=== PATIENT | male | born 1985 | race Caucasian/White ===

== ENCOUNTER 2016-06-08 20:37 | Emergency (ER) | payer BC ==
[2016-06-08 20:51] VITALS: O2SAT 100
--- NOTE | 2016-06-08 21:14 | ERPHSYRPT ---
- History of Present Illness Time Seen by Provider: 06/08/16 21:09 Source: patient Exam Limitations: no limitations Patient Subjective Stated Complaint: pt states he has a bad tooth and has been having pain since yesterday and increased today Triage Nursing Assessment: pt alert and oriented. answers questions approp. pt ambulatory with steady gait noted. skin pink warm and dry. respirations nonlabored with lungs cta. broken, brown discolored tooth noted to lt lower jaw. Physician History: The patient is a 30-year-old male who complains of increasing tooth pain in the left lower posterior molar since yesterday. He has known dental caries in that tooth and has had the same problem in the past. He is out of antibiotics. He knows he needs to have a dentist take care of it. He comes in requesting some pain relief and antibiotics. Timing/Duration: gradual onset Severity: severe ENT Location: dental Prearrival Treatment: no prearrival treatment Modifying Factors: Improves With: nothing Associated Symptoms: tooth pain Allergies/Adverse Reactions: No Known Drug Allergies Allergy (Verified 06/08/16 20:52) Home Medications: Cyclobenzaprine HCl [Flexeril] 5 mg PO Q8H PRN PRN 06/08/16 [History] Ibuprofen 800 mg PO Q8H PRN PRN 06/08/16 [History] Hx Tetanus, Diphtheria Vaccination/Date Given: Yes Hx Influenza Vaccination/Date Given: No Hx Pneumococcal Vaccination/Date Given: No Immunizations Up to Date: Yes - Review of Systems Constitutional: No Fever, No Chills Eyes: No Symptoms Ears, Nose, & Throat: Other (dental pain) Respiratory: No Cough, No Dyspnea Cardiac: No Chest Pain, No Edema, No Syncope Abdominal/Gastrointestinal: No Abdominal Pain, No Nausea, No Vomiting, No Diarrhea Genitourinary Symptoms: No Dysuria Musculoskeletal: No Back Pain, No Neck Pain Skin: No Rash Neurological: No Dizziness, No Focal Weakness, No Sensory Changes Psychological: No Symptoms Endocrine: No Symptoms Hematologic/Lymphatic: No Symptoms Immunological/Allergic: No Symptoms All Other Systems: Reviewed and Negative - Past Medical History Pertinent Past Medical History: No Neurological History: No Pertinent History ENT History: No Pertinent History Cardiac History: No Pertinent History Respiratory History: No Pertinent History Endocrine Medical History: No Pertinent History Musculoskeletal History: Other GI Medical History: No Pertinent History History: No Pertinent History Psycho-Social History: No Pertinent History Male Reproductive Disorders: No Pertinent History Other Medical History: chronic shoulder pain - Past Surgical History Past Surgical History: No Neuro Surgical History: No Pertinent History Cardiac: No Pertinent History Respiratory: No Pertinent History Gastrointestinal: Cholecystectomy Genitourinary: No Pertinent History Musculoskeletal: No Pertinent History Male Surgical History: No Pertinent History - Social History Smoking Status: Former smoker How long have you smoked: 8 YRS. Exposure to second hand smoke: No Alcohol Use: Socially Drug Use: none Patient Lives Alone: No Significant Family History: no pertinent family hx - Nursing Vital Signs Nursing Vital Signs: Initial Vital Signs Temperature 97.6 F Temperature Source Oral Pulse Rate 74 Respiratory Rate 18 Blood Pressure [Right Arm] 163/88 Pain Intensity 9 - Physical Exam General Appearance: moderate distress Eye Exam: bilateral eye: PERRL, EOMI Nasal Exam: normal inspection Throat Exam: mandibular swelling Neck Exam: supple Cardiovascular/Respiratory Exam: normal breath sounds, regular rate/rhythm Abdominal Exam: non-tender, soft Neurologic Exam: alert, oriented x 3, sensation nml, No motor deficits Skin Exam: normal color, warm, dry SpO2: 100 Oxygen Delivery: Room Air - Progress Progress: improved Counseled pt/family regarding: diagnosis - Departure Time of Disposition: 21:16 Departure Disposition: Home Clinical Impression: Dental abscess Condition: Stable Critical Care Time: No Additional Instructions: You have an abscess in your left lower rear molar. You were given a Toradol injection 60 mg in the emergency room. We were also given penicillin 500 mg. You have a prescription for penicillin to take one tablet 4 times a day for 10 days. You should follow-up with a dentist as soon as possible to get this tooth extracted. Prescriptions: Penicillin V Potassium 500 mg PO QID #40 tablet
[2016-06-08] MEDS ORDERED: TORAdol 30 mg Injection IM ONE (21:19)
[2016-06-08] MEDS ORDERED: PEN-VEE K PO ONE (21:19)
[2016-06-08] MEDS ORDERED: PEN-VEE K ONE (21:27)
[2016-06-08] MEDS ORDERED: TORAdol 30 mg Injection ONE (21:27)
[2016-06-08 21:40] VITALS: BP 123/70; PULSE 73
== END 2016-06-08 21:40 | disposition home or self-care (01) ==
LOC: ED 20:37
DX: K04.7 Periapical abscess without sinus (principal)
CPT/HCPCS: 96372; 99284; J1885; A9270-GY

== ENCOUNTER 2017-09-14 18:26 | Emergency (ER) | payer SELFPAY ==
[2017-09-14 18:42] VITALS: BP 138/89; PULSE 85; O2SAT 9
--- NOTE | 2017-09-14 18:57 | ERPHSYRPT ---
- History of Present Illness Time Seen by Provider: 09/14/17 18:49 Source: patient Exam Limitations: no limitations Patient Subjective Stated Complaint: pt here for toothache to left side of mouth since last night. states he as 3 bad teeth on that side Triage Nursing Assessment: pt has slight swellign to left side of jaw Physician History: 32-year-old white male arrives with complaint of pain in the left side of his mouth he states he feels like the left side of his mouth is swollenl He states he has bad teeth, Past medical history includes chronic shoulder pain, Past surgical history includes cholecystectomy, Timing/Duration: day(s) (2 days) Severity: moderate Modifying Factors: Improves With: nothing Associated Symptoms: No nausea, No vomiting, No abdominal pain, No shortness of breath, No heartburn, No diaphoresis, No cough, No chills, No chest pain, No fever, No headaches, No loss of appetite, No malaise, No rash, No syncope, No seizure, No weakness Allergies/Adverse Reactions: No Known Drug Allergies Allergy (Verified 09/14/17 18:38) Home Medications: Hydrocodone Bit/Acetaminophen [[place] 5-325 Tablet] 1 ea BID 09/14/17 [History] Meloxicam 1 ea DAILY 09/14/17 [History] Hx Tetanus, Diphtheria Vaccination/Date Given: No Hx Influenza Vaccination/Date Given: No Hx Pneumococcal Vaccination/Date Given: No Immunizations Up to Date: Yes - Review of Systems Constitutional: No Fever, No Chills Eyes: No Symptoms, No Foreign Body Sensation Ears, Nose, & Throat: Epistaxis, Mouth Pain, Mouth Swelling, No Ear Discharge, No Hearing Changes, No Tinnitus, No Nose Pain, No Nose Congestion, No Nose Discharge, No Sinus Drainage, No Loose Teeth, No Throat Pain, No Throat Swelling , No Hoarse, No Painful Swallowing, No Snoring, No Stridor Respiratory: No Cough, No Dyspnea Cardiac: No Chest Pain, No Edema, No Syncope Abdominal/Gastrointestinal: No Abdominal Pain, No Nausea, No Vomiting, No Diarrhea Genitourinary Symptoms: No Dysuria Musculoskeletal: No Back Pain, No Neck Pain Skin: No Rash Neurological: No Dizziness, No Focal Weakness, No Sensory Changes Psychological: No Symptoms Endocrine: No Symptoms All Other Systems: Reviewed and Negative - Past Medical History Pertinent Past Medical History: No Neurological History: No Pertinent History ENT History: No Pertinent History Cardiac History: No Pertinent History Respiratory History: No Pertinent History Endocrine Medical History: No Pertinent History Musculoskeletal History: Other GI Medical History: No Pertinent History History: No Pertinent History Psycho-Social History: No Pertinent History Male Reproductive Disorders: No Pertinent History Other Medical History: chronic shoulder pain - Past Surgical History Past Surgical History: No Neuro Surgical History: No Pertinent History Cardiac: No Pertinent History Respiratory: No Pertinent History Gastrointestinal: Cholecystectomy Genitourinary: No Pertinent History Musculoskeletal: No Pertinent History Male Surgical History: No Pertinent History - Social History Smoking Status: Current some day smoker How long have you smoked: 8 YRS. Exposure to second hand smoke: Yes Alcohol Use: Socially Drug Use: none Patient Lives Alone: No Significant Family History: no pertinent family hx - Nursing Vital Signs Nursing Vital Signs: Initial Vital Signs Temperature 98.6 F 09/14/17 18:35 Pulse Rate 85 09/14/17 18:35 Respiratory Rate 16 09/14/17 18:35 Blood Pressure 138/89 09/14/17 18:35 O2 Sat by Pulse Oximetry 9 L 09/14/17 18:35 Pain Scale Pain Intensity 6 - Physical Exam General Appearance: mild distress Eye Exam: PERRL/EOMI, eyes nml inspection Ears, Nose, Throat Exam: TMs normal, pharynx normal, moist mucous membranes, other (patient with poor dentition caries in the left molar area, mild tenderness with palpation lateral mandibular and maxillary area) Neck Exam: normal inspection, non-tender, supple, full range of motion Respiratory Exam: normal breath sounds, lungs clear, No respiratory distress Cardiovascular Exam: regular rate/rhythm, normal heart sounds, normal peripheral pulses Gastrointestinal/Abdomen Exam: soft, normal bowel sounds, No tenderness, No mass Back Exam: normal inspection, normal range of motion, No CVA tenderness, No vertebral tenderness Extremity Exam: normal inspection, normal range of motion, pelvis stable Neurologic Exam: alert, oriented x 3, cooperative, recovery room rn II-XII nml as tested, normal mood/affect, nml cerebellar function, nml station & gait, sensation nml, No motor deficits Skin Exam: normal color, warm, dry, No rash Lymphatic Exam: No adenopathy SpO2 Interpretation: normal (97%) SpO2: 9 Oxygen Delivery: Room Air - Course Nursing assessment & vital signs reviewed: Yes - Progress Progress: improved Progress Note: 09/14/17 18:54 This is a 32-year-old white male with history of chronic shoulder pain who states he takes Mobic and hydrocodone at home. He states he has been having pain and swelling in the left side of his mouth he has a history of chronic dental caries has been seen in the past secondary to a carious tooth in the left molar region. Patient does not appear to be in acute distress. Patient does have a pain control supervisor he has a prescription for hydrocodone/acetaminophen 7.5-325 #90 which was written on August 17, 2017 He states he is to see his pain control supervisor tomorrow. Will go ahead and write for amoxicillin 500 mg orally 3 times a day for 10 days. - Departure Time of Disposition: 18:57 Departure Disposition: Home Clinical Impression: Pain, dental, Dental caries Condition: Fair Critical Care Time: No Additional Instructions: Return home. Cold packs to area 24-48 hours (external) Amoxicillin 500 mg orally 3 times a day for 10 days. Pain medication as prescribed by your pain control supervisor. Avoid excessively hot or cold foods. Follow-up with your family doctor or dentist. Return for acute distress or for severe symptoms. Prescriptions: Amoxicillin 500 mg PO TID #30 capsule
== END 2017-09-14 19:10 | disposition home or self-care (01) ==
LOC: ED 18:26
DX: K02.9 Dental caries, unspecified (principal); Z72.0 Tobacco use
CPT/HCPCS: 99283

== ENCOUNTER 2018-01-17 19:50 | Emergency (ER) | payer BC ==
[2018-01-17] MEDS ORDERED: XYLOCAINE 1% HCL 20 ML MDV IJ ONE (20:05)
[2018-01-17] MEDS ORDERED: BACIGUENT PACKET TP ONE (20:05)
[2018-01-17] MEDS ORDERED: XYLOCAINE 1% HCL 20 ML MDV ONE (20:07)
[2018-01-17 20:11] VITALS: O2SAT 99
--- NOTE | 2018-01-17 20:11 | ERPHSYRPT ---
- History of Present Illness Time Seen by Provider: 01/17/18 20:07 Source: patient Exam Limitations: no limitations Patient Subjective Stated Complaint: pt states while working on his car, he hit his arm on a piece of metal and cut it. Triage Nursing Assessment: pt alert and oriented, answers questions approp. pt ambulatory with steady gait noted, respirations nonlabored with lungs cta. laceration to rt outer elbow approx 3cm, no bleeding noted at this time. Physician History: 32-year-old white male arrives with complaint of laceration to his right posterior elbow symptoms since an hour prior to arrival. According to patient he was working on an old car when he lacerated his elbow on portion of the car. Patient has full range of motion to all extremities he has a laceration to his right dorsal elbow. Patient denies any other complaints. Patient's last tetanus was 4-1/2 years ago, Past medical history includes chronic shoulder pain, Past surgical history includes cholecystectomy. Social history includes tobacco use. Occurred: just prior to arrival Method of Injury: other (lacerated on an old car) Quality: constant Severity of Pain-Max: mild Severity of Pain-Current: mild Extremities Pain Location: elbow: right Modifying Factors: Improves With: nothing Associated Symptoms: none Allergies/Adverse Reactions: No Known Drug Allergies Allergy (Verified 01/17/18 20:03) Home Medications: Hydrocodone Bit/Acetaminophen [[place] 5-325 Tablet] 1 ea BID 09/14/17 [History] Meloxicam 1 ea DAILY 09/14/17 [History] Hx Tetanus, Diphtheria Vaccination/Date Given: Yes (2013) Hx Influenza Vaccination/Date Given: No Hx Pneumococcal Vaccination/Date Given: No Immunizations Up to Date: Yes - Review of Systems Constitutional: No Fever, No Chills Eyes: No Symptoms Ears, Nose, & Throat: No Symptoms Respiratory: No Cough, No Dyspnea Cardiac: No Chest Pain, No Edema, No Syncope Abdominal/Gastrointestinal: No Abdominal Pain, No Nausea, No Vomiting, No Diarrhea Genitourinary Symptoms: No Dysuria Musculoskeletal: No Back Pain, No Neck Pain Skin: Other (1.5 cm laceration right posterior elbow) Neurological: No Dizziness, No Focal Weakness, No Sensory Changes Psychological: No Symptoms Endocrine: No Symptoms All Other Systems: Reviewed and Negative - Past Medical History Pertinent Past Medical History: No Neurological History: No Pertinent History ENT History: No Pertinent History Cardiac History: No Pertinent History Respiratory History: No Pertinent History Endocrine Medical History: No Pertinent History Musculoskeletal History: Other GI Medical History: No Pertinent History History: No Pertinent History Psycho-Social History: No Pertinent History Male Reproductive Disorders: No Pertinent History Other Medical History: chronic shoulder pain, pinched nerves - Past Surgical History Past Surgical History: No Neuro Surgical History: No Pertinent History Cardiac: No Pertinent History Respiratory: No Pertinent History Gastrointestinal: Cholecystectomy Genitourinary: No Pertinent History Musculoskeletal: No Pertinent History Male Surgical History: No Pertinent History - Social History Smoking Status: Current some day smoker How long have you smoked: 10 yrs Exposure to second hand smoke: Yes Alcohol Use: Socially Drug Use: none Patient Lives Alone: No Significant Family History: no pertinent family hx - Nursing Vital Signs Nursing Vital Signs: Initial Vital Signs Temperature 98.1 F 01/17/18 19:53 Pulse Rate 100 H 01/17/18 19:53 Respiratory Rate 16 01/17/18 19:53 Blood Pressure 126/94 01/17/18 19:53 O2 Sat by Pulse Oximetry 99 01/17/18 19:53 Pain Scale Pain Intensity 5 - Physical Exam General Appearance: mild distress Eyes, Ears, Nose, Throat Exam: moist mucous membranes Neck Exam: non-tender, supple Cardiovascular/Respiratory Exam: chest non-tender, normal breath sounds, regular rate/rhythm, no respiratory distress Abdominal Exam: non-tender, No guarding Back Exam: normal inspection, No vertebral tenderness Shoulder Exam: normal inspection, non-tender, no evidence of injury, normal ROM Elbow/Forearm Exam: normal ROM, No normal inspection (1.5 cm laceration right dorsal nelbow), No non-tender, No no evidence of injury Wrist Exam: normal inspection, non-tender, no evidence of injury, normal ROM Hand Exam: normal inspection, non-tender, no evidence of injury, normal ROM Neuro/Tendon Exam: normal sensation, normal motor functions Mental Status Exam: alert, oriented x 3, cooperative Skin Exam: other (1.5 cmlaceration right dorsal right dorsal elbowelbow) SpO2 Interpretation: normal (99%Was assessed in on him) - Course Nursing assessment & vital signs reviewed: Yes Ordered Tests: Active Orders 24 hr Category Date Time Status Prepare for Sutures STAT Care 01/17/18 20:05 Active Sutures STAT Care 01/17/18 20:06 Active Wound Care STAT Care 01/17/18 20:05 Active Medication Summary Discontinued Medications Generic Name Dose Route Start Last Admin Trade Name Osmar PRN Reason Stop Dose Admin Bacitracin Zinc 0.9 gm 01/17/18 20:05 Baciguent Packet TP 01/17/18 20:06 STAT ONE Lidocaine HCl 5 ml 01/17/18 20:05 Xylocaine 1% Hcl 20 Ml Mdv IJ 01/17/18 20:06 STAT ONE Lidocaine HCl Confirm 01/17/18 20:07 Xylocaine 1% Hcl 20 Ml Mdv Administered 01/17/18 20:08 Dose 10 ml .ROUTE .STOUYA-MED ONE - Progress Progress: improved Progress Note: 01/17/18 20:32 1.5 cm laceration right posterior elbow. Laceration inspected after cleansing no foreign bodies noted. Laceration sterilely prepped and draped irrigated with saline cleansed with Hibiclens. Laceration closed with 3 5-0 Prolene suture lacerations. Bacitracin applied and dressing applied by nurse. Patient's right upper extremity neurovascular intact after repair. - Departure Time of Disposition: 20:34 Departure Disposition: Home Clinical Impression: Laceration of right elbow Qualifiers: Encounter type: initial encounter Qualified Code(s): S51.011A - Laceration without foreign body of right elbow, initial encounter Condition: Fair Critical Care Time: No Referrals: DOCTOR,NO FAMILY [Primary Care Provider] - Instructions: Laceration Repair With Stitches (DC) Additional Instructions: Keep area clean and dry. Bacitracin to area until healed. Sutures out in 5-7 days. Follow-up with your family doctor or return if signs of infection or problems. Return for acute distress or for severe symptoms.
[2018-01-17] MEDS ORDERED: BACIGUENT PACKET ONE (20:32)
[2018-01-17 20:40] VITALS: BP 132/97; PULSE 76
== END 2018-01-17 20:45 | disposition home or self-care (01) ==
LOC: ED 19:50
DX: S51.011A Laceration without foreign body of right elbow, initial encounter (principal); W26.8XXA Contact with other sharp object(s), not elsewhere classified, initial encounter; Y93.89 Activity, other specified; Y92.9 Unspecified place or not applicable; M25.521 Pain in right elbow
CPT/HCPCS: 12001; 96372; 99284; A9270-GY

== ENCOUNTER 2018-04-29 19:03 | Emergency (ER) | payer BC ==
[2018-04-29 20:01] VITALS: O2SAT 100
[2018-04-29] MEDS ORDERED: TORAdol 30 mg Injection IM ONE (20:52)
--- NOTE | 2018-04-29 20:59 | ERPHSYRPT ---
- History of Present Illness Source: patient Exam Limitations: no limitations Patient Subjective Stated Complaint: pt is alert and oriented. pt comes in via wheelchair. pt states he "kicked a toolbox and then walked on his foot for 4 hours". pt is able to bear weight. pt right foot is tender to touch. no discoloration noted. slight swelling noted to the lateral aspect of his foot. no obvious deformity. no bruising or redness noted. Triage Nursing Assessment: see above Physician History: Pt is a 32 y/o male that presented to the hospital with R foot pain. Pt states , kicked a metal tool box earlier in the morning, and was working all day, walking on the foot. The pain got worse, and he presented to the ED. Occurred: this morning Quality: constant Severity of Pain-Max: moderate Severity of Pain-Current: moderate Lower Extremities Pain: foot: right (Pain in the metatarsal around the 5th toe) Modifying Factors: Improves With: pain medication Associated Symptoms: unable to bear weight Allergies/Adverse Reactions: No Known Drug Allergies Allergy (Verified 01/17/18 20:03) Home Medications: Hydrocodone Bit/Acetaminophen [[place] 5-325 Tablet] 1 ea PO TID PRN PRN 09/14/17 [History] Meloxicam 1 ea PO DAILY 09/14/17 [History] Hx Tetanus, Diphtheria Vaccination/Date Given: Yes (2009) Hx Influenza Vaccination/Date Given: No Hx Pneumococcal Vaccination/Date Given: No Immunizations Up to Date: Yes - Review of Systems Constitutional: No Fever, No Chills Eyes: No Symptoms Ears, Nose, & Throat: No Symptoms Respiratory: No Cough, No Dyspnea Cardiac: No Chest Pain, No Edema, No Syncope Abdominal/Gastrointestinal: No Abdominal Pain, No Nausea, No Vomiting, No Diarrhea Musculoskeletal: Joint Pain (Foot on right) Neurological: No Dizziness, No Focal Weakness, No Sensory Changes - Past Medical History Pertinent Past Medical History: No Neurological History: No Pertinent History ENT History: No Pertinent History Cardiac History: No Pertinent History Respiratory History: No Pertinent History Endocrine Medical History: No Pertinent History Musculoskeletal History: Other GI Medical History: No Pertinent History History: No Pertinent History Psycho-Social History: No Pertinent History Male Reproductive Disorders: No Pertinent History Other Medical History: chronic left shoulder pain, pinched nerves - Past Surgical History Past Surgical History: No Neuro Surgical History: No Pertinent History Cardiac: No Pertinent History Respiratory: No Pertinent History Gastrointestinal: Cholecystectomy Genitourinary: No Pertinent History Musculoskeletal: No Pertinent History Male Surgical History: No Pertinent History - Social History Smoking Status: Current every day smoker How long have you smoked: 15 years Exposure to second hand smoke: Yes Alcohol Use: Socially Drug Use: none Patient Lives Alone: No Significant Family History: no pertinent family hx - Nursing Vital Signs Nursing Vital Signs: Initial Vital Signs Temperature 97.9 F 04/29/18 19:11 Pulse Rate 84 04/29/18 19:11 Respiratory Rate 16 04/29/18 19:11 Blood Pressure 134/82 04/29/18 19:11 O2 Sat by Pulse Oximetry 99 04/29/18 19:11 Pain Scale Pain Intensity 3 - Physical Exam General Appearance: alert Neck Exam: non-tender, supple Cardiovascular/Respiratory Exam: chest non-tender, normal breath sounds, regular rate/rhythm, no respiratory distress Foot Exam: right foot: limited range of motion (Secondary to pain) SpO2: 100 O2 Delivery: Room Air - Course Nursing assessment & vital signs reviewed: Yes Ordered Tests: Active Orders 24 hr Category Date Time Status Gonsalo Bandage Application -[facility] STAT Care 04/29/18 20:51 Active FOOT (MINIMUM 3 VIEWS) Stat Exams 04/29/18 19:48 Taken Medication Summary Generic Name Dose Route Start Last Admin Trade Name Osmar PRN Reason Stop Dose Admin Ketorolac Tromethamine 30 mg 04/29/18 20:52 Toradol 30 Mg Injection IM 04/29/18 20:53 STAT ONE - Progress Progress Note: Pt is in marked discomfort. XR is negative for fx. Will order gonsalo wrap of the foot for stability. Should elevate the leg, ice it and use OTC NSAIDs for pain. Will order Toradol for pain. Pt can be off work till Thursday05/03/18 04/29/18 20:59 Counseled pt/family regarding: need for follow-up (F/U with PCP) - Departure Time of Disposition: 21:01 Departure Disposition: Home Clinical Impression: Sprain of foot, right Condition: Stable Critical Care Time: No Referrals: DOCTOR,NO FAMILY [Primary Care Provider] - Instructions: Foot Sprain (DC) Additional Instructions: Elevate and ice the foot. Take NSAIDs OTC for pain, as anti inflammatory. Forms: Work/School Release Form
[2018-04-29] MEDS ORDERED: TORAdol 30 mg Injection ONE (21:01)
[2018-04-29 21:14] VITALS: BP 140/98; PULSE 80
--- NOTE | 2018-04-30 09:05 | XRAY ---
Indication: Pain following kicking injury. Comparison: None 3 nonweightbearing views of the right foot obtained. No acute fracture, dislocation, or soft tissue abnormalitites.
== END 2018-04-29 21:25 | disposition home or self-care (01) ==
LOC: ED 19:03
DX: S93.601A Unspecified sprain of right foot, initial encounter (principal); W22.8XXA Striking against or struck by other objects, initial encounter
CPT/HCPCS: 73630; 96372; 99284; J1885

== ENCOUNTER 2018-07-22 15:35 | Emergency (ER) | payer BC ==
--- NOTE | 2018-07-22 15:42 | ERPHSYRPT ---
- History of Present Illness Time Seen by Provider: 07/22/18 15:42 Source: patient, family Exam Limitations: no limitations Physician History: 32 y/o white male presents with right cheek laceration. while working on his car , wrench he was working with kicked back hitting his face. no loc. pts tetanus utd. Timing/Duration: today Quality: painful Severity: mild Location: face Possible Causes: other (accidental wrench injury) Allergies/Adverse Reactions: No Known Drug Allergies Allergy (Verified 07/22/18 15:44) Home Medications: No Reportable Medications [No Reported Medications] 07/22/18 [History] Hx Tetanus, Diphtheria Vaccination/Date Given: Yes (2009) Hx Influenza Vaccination/Date Given: No Hx Pneumococcal Vaccination/Date Given: No - Review of Systems Constitutional: No Symptoms Eyes: No Symptoms Ears, Nose, & Throat: No Symptoms Respiratory: No Symptoms Cardiac: No Symptoms Abdominal/Gastrointestinal: No Symptoms Genitourinary Symptoms: No Symptoms Musculoskeletal: No Symptoms Skin: Other (facial laceration) Neurological: No Symptoms Psychological: No Symptoms Endocrine: No Symptoms Hematologic/Lymphatic: No Symptoms Immunological/Allergic: No Symptoms All Other Systems: Reviewed and Negative - Past Medical History Pertinent Past Medical History: No Neurological History: No Pertinent History ENT History: No Pertinent History Cardiac History: No Pertinent History Respiratory History: No Pertinent History Endocrine Medical History: No Pertinent History Musculoskeletal History: Other GI Medical History: No Pertinent History History: No Pertinent History Psycho-Social History: No Pertinent History Male Reproductive Disorders: No Pertinent History Other Medical History: chronic left shoulder pain, pinched nerves - Past Surgical History Past Surgical History: No Neuro Surgical History: No Pertinent History Cardiac: No Pertinent History Respiratory: No Pertinent History Gastrointestinal: Cholecystectomy Genitourinary: No Pertinent History Musculoskeletal: No Pertinent History Male Surgical History: No Pertinent History - Social History Smoking Status: Current every day smoker How long have you smoked: 15 years Exposure to second hand smoke: Yes Alcohol Use: Socially Drug Use: none Patient Lives Alone: No Significant Family History: no pertinent family hx - Nursing Vital Signs Nursing Vital Signs: Initial Vital Signs Temperature 97.9 F 07/22/18 15:37 Pulse Rate 80 07/22/18 15:37 Respiratory Rate 16 07/22/18 15:37 Blood Pressure 122/95 07/22/18 15:37 O2 Sat by Pulse Oximetry 98 07/22/18 15:37 Pain Scale Pain Intensity 6 - Physical Exam General Appearance: no apparent distress, alert Eye Exam: PERRL/EOMI Ears, Nose, Throat Exam: normal ENT inspection, moist mucous membranes Neck Exam: normal inspection, non-tender, supple, full range of motion Respiratory Exam: airway intact, No chest tenderness, No respiratory distress Gastrointestinal/Abdomen Exam: No tenderness Rectal Exam: not done Back Exam: normal inspection, normal range of motion, No CVA tenderness Extremity Exam: normal inspection, normal range of motion, pelvis stable, other Neurologic Exam: alert, oriented x 3, cooperative, family and marriage counsellor II-XII nml as tested, other Skin Exam: normal color, warm, dry, laceration (2.5 cm right cheek laceration) Lymphatic Exam: No adenopathy SpO2 Interpretation: normal O2 Delivery: Room Air Procedures - Laceration/Wound Repair Face Wound Location: Right, face Wound Length (cm): 2.5 Wound's Depth, Shape: superficial Wound Explored: to base Irrigated: Yes Hibiclens Prep: Yes Wound Repaired With: sutures Suture Size/Type: 5-0 (3) Layer Closure?: No - Course Nursing assessment & vital signs reviewed: Yes Ordered Tests: Medication Summary Discontinued Medications Generic Name Dose Route Start Last Admin Trade Name Micahq PRN Reason Stop Dose Admin Hydrocodone Bitart/Acetaminophen 1 tab 07/22/18 16:39 07/22/18 16:42 [place] 5/325 Mg PO 07/22/18 16:40 1 tab SENT HOME W/ PATIENT ONE Administration Hydrocodone Bitart/Acetaminophen Confirm 07/22/18 16:41 [place] 5/325 Mg Administered 07/22/18 16:42 Dose 1 tab .ROUTE .STK-MED ONE Bacitracin Zinc 0.9 gm 07/22/18 16:39 07/22/18 16:43 Baciguent Packet TP 07/22/18 16:40 1 gm STAT ONE Administration Bacitracin Zinc Confirm 07/22/18 16:41 [place]iguent Packet Administered 07/22/18 16:42 Dose 1 gm .ROUTE .STK-MED ONE Lidocaine HCl 5 ml 07/22/18 16:40 07/22/18 16:43 Xylocaine 1% Hcl 20 Ml Mdv IJ 07/22/18 16:41 5 ml STAT ONE Administration - Progress Progress: improved, re-examined Counseled pt/family regarding: diagnosis, need for follow-up - Departure Departure Disposition: Home Clinical Impression: Facial laceration Condition: Stable Critical Care Time: No Referrals: DOCTOR,NO FAMILY [Primary Care Provider] - Additional Instructions: keep repair site dry for 24 hours. after 24 hours, may wash daily and apply antibiotic ointment. suture removal in 6 days. ice pack, tylenol and ibuprofen for pain.
[2018-07-22 15:51] VITALS: PULSE 80; O2SAT 98
[2018-07-22] MEDS ORDERED: BACIGUENT PACKET TP ONE (16:39)
[2018-07-22] MEDS ORDERED: NORCO 5/325 MG PO ONE (16:39)
[2018-07-22] MEDS ORDERED: XYLOCAINE 1% HCL 20 ML MDV IJ ONE (16:40)
[2018-07-22] MEDS ORDERED: NORCO 5/325 MG ONE (16:41)
[2018-07-22] MEDS ORDERED: BACIGUENT PACKET ONE (16:41)
[2018-07-22 17:05] VITALS: BP 122/87
== END 2018-07-22 17:26 | disposition home or self-care (01) ==
LOC: ED 15:35
DX: S01.81XA Laceration without foreign body of other part of head, initial encounter (principal); S01.411A Laceration without foreign body of right cheek and temporomandibular area, initial encounter; W22.8XXA Striking against or struck by other objects, initial encounter; Y93.89 Activity, other specified; Y92.89 Other specified places as the place of occurrence of the external cause
CPT/HCPCS: 12013; 99283; A9270-GY

== ENCOUNTER 2018-10-25 12:58 | Emergency (ER) | payer BC ==
[2018-10-25 13:09] VITALS: PULSE 88
--- NOTE | 2018-10-25 13:19 | ERPHSYRPT ---
- History of Present Illness Time Seen by Provider: 10/25/18 13:11 Source: patient Exam Limitations: no limitations Patient Subjective Stated Complaint: Pt states "My left wrist has been hurting on and off for the past two months. 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 Pt left wrist no deformity, no bruising, slight swelling noted. Physician History: C/o left wrist pain x 2 months, denies injury, swelling, other complaints. Occurred: other (2 months) Method of Injury: other (denies) Quality: intermittent, aching Severity of Pain-Current: moderate Extremities Pain Location: wrist: left Modifying Factors: Improves With: immobilization, movement Associated Symptoms: none Allergies/Adverse Reactions: No Known Drug Allergies Allergy (Verified 07/22/18 15:44) Home Medications: No Reportable Medications [No Reported Medications] 07/22/18 [History] Hx Tetanus, Diphtheria Vaccination/Date Given: Yes Hx Influenza Vaccination/Date Given: No Hx Pneumococcal Vaccination/Date Given: No Immunizations Up to Date: Yes - Review of Systems Constitutional: No Symptoms Ears, Nose, & Throat: No Symptoms Respiratory: No Symptoms Cardiac: No Symptoms Abdominal/Gastrointestinal: No Symptoms Musculoskeletal: Other (left wrist pain) All Other Systems: Reviewed and Negative - Past Medical History Pertinent Past Medical History: No Neurological History: No Pertinent History ENT History: No Pertinent History Cardiac History: No Pertinent History Respiratory History: No Pertinent History Endocrine Medical History: No Pertinent History Musculoskeletal History: Other GI Medical History: No Pertinent History History: No Pertinent History Psycho-Social History: No Pertinent History Male Reproductive Disorders: No Pertinent History Other Medical History: chronic left shoulder pain, pinched nerves - Past Surgical History Past Surgical History: No Neuro Surgical History: No Pertinent History Cardiac: No Pertinent History Respiratory: No Pertinent History Gastrointestinal: Cholecystectomy Genitourinary: No Pertinent History Musculoskeletal: No Pertinent History Male Surgical History: No Pertinent History - Social History Smoking Status: Current every day smoker How long have you smoked: years Exposure to second hand smoke: Yes Alcohol Use: Socially Drug Use: none Patient Lives Alone: No Significant Family History: no pertinent family hx - Nursing Vital Signs Nursing Vital Signs: Initial Vital Signs Temperature 98.2 F 10/25/18 13:04 Pulse Rate 88 10/25/18 13:04 Respiratory Rate 18 10/25/18 13:04 Blood Pressure 162/106 10/25/18 13:04 O2 Sat by Pulse Oximetry 99 10/25/18 13:04 Pain Scale Pain Intensity 8 - Physical Exam General Appearance: no apparent distress Neck Exam: normal inspection, non-tender Cardiovascular/Respiratory Exam: chest non-tender, normal breath sounds, heart sounds normal Abdominal Exam: non-tender Back Exam: normal inspection Wrist Exam: pain (left dorsal thumb and dorso-radial wrist painful, tender, no swelling, redness, increasing upon flexion, extension.) Hand Exam: normal inspection, non-tender Neuro/Tendon Exam: normal sensation, normal motor functions Mental Status Exam: alert, oriented x 3 Skin Exam: normal color, warm, dry, No rash SpO2 Interpretation: normal SpO2: 99 O2 Delivery: Room Air - Course Nursing assessment & vital signs reviewed: Yes - Radiology Exams Left Wrist X-ray Interpretation: Interpreted by me, Negative Ordered Tests: Active Orders 24 hr Category Date Time Status Splint STAT Care 10/25/18 13:55 Ordered WRIST (MIN 3 VIEWS) Stat Exams 10/25/18 13:15 Taken - Progress Progress: unchanged Progress Note: 10/25/18 13:56 Pt was educated about X ray result, his left wrist was placed in Velcro splint, and discharged to follow up with orthopedic surgeon if not better in 1 week. 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 Forms: Work/School Release Form
[2018-10-25 14:06] VITALS: BP 160/97; O2SAT 98
--- NOTE | 2018-10-25 14:15 | XRAY ---
Indication: Pain 2 months. No known injury. Comparison: None 3 views of the left wrist obtained. No bony, articular, or soft tissue abnormalities.
== END 2018-10-25 14:14 | disposition home or self-care (01) ==
LOC: ED 12:58
DX: M65.4 Radial styloid tenosynovitis [de Quervain] (principal); M25.532 Pain in left wrist
CPT/HCPCS: 73110; 99283; L3908

== ENCOUNTER 2019-09-20 10:45 | Emergency (ER) | payer BC, MEDICAID ==
[2019-09-20 10:58] VITALS: O2SAT 99
--- NOTE | 2019-09-20 11:19 | ERPHSYRPT ---
- History of Present Illness Time Seen by Provider: 09/20/19 11:00 Source: patient Exam Limitations: no limitations Patient Subjective Stated Complaint: pt to ER with complaints of mid Left back pain since last night. pt states he was doing some work on the roof. Triage Nursing Assessment: pt ambulatory. A&Ox4. pt skin pwd. appears to be in pain. Physician History: This is a 34-year-old white male who was working on a roof yesterday. He feels as though he overexerted himself. This morning he woke up with significant left side back pain. It is nonradiating and localized. He did not fall he did not have any trauma to his back. Timing/Duration: yesterday Method of Injury: lifting, twisted, turning Quality: sharp, stabbing Back Pain Location: T-spine Severity of Pain-Max: moderate Severity of Pain-Current: moderate Modifying Factors: Improves With: movement (Worsens) Associated Symptoms: muscle spasms, No loss of bowel control, No problems urinating, No numbness in legs/feet Previous symptoms: no prior history Allergies/Adverse Reactions: No Known Drug Allergies Allergy (Verified 09/20/19 10:58) Hx Tetanus, Diphtheria Vaccination/Date Given: Yes Hx Influenza Vaccination/Date Given: No Hx Pneumococcal Vaccination/Date Given: No Immunizations Up to Date: Yes Travel Risk - International Travel Have you traveled outside of the country in past 3 weeks: No - Coronavirus Screening Are you exhibiting any of the following symptoms?: No Close contact with a COVID-19 positive Pt in past 14-21 Days: No - Review of Systems Constitutional: No Symptoms Eyes: No Symptoms Ears, Nose, & Throat: No Symptoms Respiratory: No Symptoms Cardiac: No Symptoms Abdominal/Gastrointestinal: No Symptoms Genitourinary Symptoms: No Symptoms Musculoskeletal: Back Pain Skin: No Symptoms Neurological: No Symptoms Psychological: No Symptoms Endocrine: No Symptoms Hematologic/Lymphatic: No Symptoms Immunological/Allergic: No Symptoms All Other Systems: Reviewed and Negative - Past Medical History Pertinent Past Medical History: No Neurological History: No Pertinent History ENT History: No Pertinent History Cardiac History: No Pertinent History Respiratory History: No Pertinent History Endocrine Medical History: No Pertinent History Musculoskeletal History: Other GI Medical History: No Pertinent History History: No Pertinent History Psycho-Social History: No Pertinent History Male Reproductive Disorders: No Pertinent History Other Medical History: chronic left shoulder pain, pinched nerves - Past Surgical History Past Surgical History: No Neuro Surgical History: No Pertinent History Cardiac: No Pertinent History Respiratory: No Pertinent History Gastrointestinal: Cholecystectomy Genitourinary: No Pertinent History Musculoskeletal: No Pertinent History Male Surgical History: No Pertinent History - Social History Smoking Status: Current every day smoker How long have you smoked: years Exposure to second hand smoke: Yes Alcohol Use: Socially Drug Use: none Patient Lives Alone: No Significant Family History: no pertinent family hx - Nursing Vital Signs Nursing Vital Signs: Initial Vital Signs Temperature 98.0 F 09/20/19 10:52 Pulse Rate 84 09/20/19 10:52 Respiratory Rate 16 09/20/19 10:52 Blood Pressure 135/87 09/20/19 10:52 O2 Sat by Pulse Oximetry 99 09/20/19 10:52 Pain Scale Pain Intensity 7 - Physical Exam General Appearance: mild distress, alert, anxiety Eye Exam: PERRL/EOMI, eyes nml inspection Ears, Nose, Throat Exam: normal ENT inspection, moist mucous membranes Neck Exam: normal inspection, non-tender, supple, full range of motion Respiratory Exam: airway intact, No chest tenderness, No respiratory distress Gastrointestinal Exam: No tenderness Back Exam: normal inspection, normal range of motion, muscle spasm, No CVA tenderness, No vertebral tenderness Extremity Exam: normal inspection, normal range of motion, pelvis stable Neurologic Exam: alert, oriented x 3, cooperative, director of communications II-XII nml as tested, normal mood/affect, nml cerebellar function, nml station & gait, sensation nml Skin Exam: normal color, warm, dry Lymphatic Exam: No adenopathy SpO2 Interpretation: normal SpO2: 99 O2 Delivery: Room Air - Course Nursing assessment & vital signs reviewed: Yes - Progress Progress: pain not gone completely, re-examined Counseled pt/family regarding: diagnosis, need for follow-up - Departure Departure Disposition: Home Clinical Impression: Back pain, Back muscle spasm Condition: Stable Critical Care Time: No Referrals: DOCTOR,NO FAMILY [Primary Care Provider] - Additional Instructions: Follow-up with your primary care physician for further management Forms: Work/School Release Form Prescriptions: Carisoprodol 350 mg [Soma 350 mg] 350 mg PO Q8H PRN PRN #10 tablet PRN Reason: Muscle Spasms Prednisone 10 mg [Deltasone 10 mg] 10 mg PO TID #12 tablet
[2019-09-20] MEDS ORDERED: PERCOCET TABLET 5/325MG PO STA (11:24)
[2019-09-20] MEDS ORDERED: DELTASONE 20 MG ONE (11:43)
[2019-09-20] MEDS ORDERED: PERCOCET TABLET 5/325MG ONE (11:43)
[2019-09-20 11:51] VITALS: BP 149/96; PULSE 76
[2019-09-21] MEDS ORDERED: DELTASONE 20 MG PO ONE (11:24)
== END 2019-09-20 11:51 | disposition home or self-care (01) ==
LOC: ED 10:45
DX: M54.6 Pain in thoracic spine (principal); X50.1XXA Overexertion from prolonged static or awkward postures, initial encounter; Y93.89 Activity, other specified; Y92.9 Unspecified place or not applicable; Z72.0 Tobacco use
CPT/HCPCS: 99283; A9270-GY

== ENCOUNTER 2020-08-02 18:43 | Emergency (ER) | payer BC, MEDICAID ==
--- NOTE | 2020-08-02 19:04 | ERPHSYRPT ---
- History of Present Illness Time Seen by Provider: 08/02/20 19:04 Source: patient Exam Limitations: no limitations Physician History: This is a 34-year-old white male who fell 2 days ago and had pain in his right wrist with associated bruising left lower ribs and bilateral knees anteriorly. Patient was concerned that he might have broken something. Patient denies head neck injury. Fell when he was washing his dog and he slipped on linoleum. Occurred: days ago (2) Injuries/Pain Location: upper extremity (Right wrist), chest (Left lower ribs), lower extremity (Bilateral anterior knees) Loss of Consciousness: no loss of consciousness Quality: aching Severity of Pain-Max: mild Severity of Pain-Current: mild Modifying Factors: Improves With: movement Associated Symptoms (Fall): extremity injury (Bilateral anterior knees and right wrist) Allergies/Adverse Reactions: No Known Drug Allergies Allergy (Verified 08/02/20 19:46) Home Medications: No Reportable Medications [No Reported Medications] 08/02/20 [History] Hx Tetanus, Diphtheria Vaccination/Date Given: Yes Hx Influenza Vaccination/Date Given: No Hx Pneumococcal Vaccination/Date Given: No Travel Risk - International Travel Have you traveled outside of the country in past 3 weeks: No - Coronavirus Screening Are you exhibiting any of the following symptoms?: No Close contact with a COVID-19 positive Pt in past 14-21 Days: No - Review of Systems Constitutional: No Symptoms Eyes: No Symptoms Ears, Nose, & Throat: No Symptoms Respiratory: No Symptoms Cardiac: No Symptoms Abdominal/Gastrointestinal: No Symptoms Genitourinary Symptoms: No Symptoms Musculoskeletal: Injury (Right wrist,) Skin: No Symptoms Neurological: No Symptoms Psychological: No Symptoms Endocrine: No Symptoms Hematologic/Lymphatic: No Symptoms Immunological/Allergic: No Symptoms All Other Systems: Reviewed and Negative - Past Medical History Pertinent Past Medical History: No Neurological History: No Pertinent History ENT History: No Pertinent History Cardiac History: No Pertinent History Respiratory History: No Pertinent History Endocrine Medical History: No Pertinent History Musculoskeletal History: Other GI Medical History: No Pertinent History History: No Pertinent History Psycho-Social History: No Pertinent History Male Reproductive Disorders: No Pertinent History Other Medical History: chronic left shoulder pain, pinched nerves - Past Surgical History Past Surgical History: No Neuro Surgical History: No Pertinent History Cardiac: No Pertinent History Respiratory: No Pertinent History Gastrointestinal: Cholecystectomy Genitourinary: No Pertinent History Musculoskeletal: No Pertinent History Male Surgical History: No Pertinent History - Social History Smoking Status: Current every day smoker How long have you smoked: years Exposure to second hand smoke: Yes Alcohol Use: Socially Drug Use: none Patient Lives Alone: No Significant Family History: no pertinent family hx - Nursing Vital Signs Nursing Vital Signs: Initial Vital Signs Temperature 98.3 F 08/02/20 19:33 Pulse Rate 71 08/02/20 19:33 Respiratory Rate 16 08/02/20 19:33 Blood Pressure 134/78 08/02/20 19:33 O2 Sat by Pulse Oximetry 100 08/02/20 19:33 Pain Scale Pain Intensity 6 - [place] Coma Score Best Eye Response (Piotr): (4) open spontaneously Best Verbal Response ([place]): (5) oriented Best Motor Response ([place]): (6) obeys commands [place] Total: 15 - Physical Exam General Appearance: no apparent distress, alert, anxiety Head Injury: no evidence of injury Eye Exam: PERRL/EOMI, eyes nml inspection ENT Exam: airway nml Neck Exam: supple, trachea midline, full range of motion, normal alignment, normal inspection Respiratory/Chest Exam: chest tenderness (Left lower rib tenderness), normal breath sounds, rib tenderness, No respiratory distress, No ecchymosis, No crepitus, No decreased breath sounds Cardiovascular Exam: normal heart sounds, regular rate/rhythm Gastrointestinal Exam: soft, normal bowel sounds, No tenderness Rectal Exam: not done Back Exam: normal inspection, normal range of motion, No CVA tenderness, No vertebral tenderness Extremity Exam: normal range of motion, tenderness (Wrist tenderness and ecchymosis, anterior knee bilaterally ecchymosis and tenderness) Neurologic Exam: alert, oriented x 3, cooperative, last putter away II-XII nml as tested, normal mood/affect, nml cerebellar function, nml station & gait, sensation nml Skin Exam: warm, dry, ecchymosis (See above) SpO2 Interpretation: normal O2 Delivery: Room Air - Course Nursing assessment & vital signs reviewed: Yes Ordered Tests: Active Orders 24 hr Category Date Time Status KNEE (3 VIEWS) Stat Exams 08/02/20 20:52 Taken KNEE (3 VIEWS) Stat Exams 08/02/20 20:52 Taken RIBS UNILATERAL Stat Exams 08/02/20 20:53 Taken WRIST (MIN 3 VIEWS) Stat Exams 08/02/20 20:53 Taken - Progress Progress: pain not gone completely, re-examined Progress Note: 08/02/20 21:40 X-ray of right wrist reveals no evidence of any acute fracture or dislocation. X-ray of left ribs revealed no evidence of any acute fracture or acute cardiopulmonary process. X-ray of bilateral knees revealed no evidence of any acute fracture or dislocation. This patient seemed reasonable at the time of my discussion with him on his x- ray findings. However it appeared that he became frustrated when there was no evidence of any acute fracture in any location that he was having pain. He stated coming here just wasted his time. He became angry stating that he was ready to leave and did not want to wait for his discharge instructions and papers. He stated he is already been here 2 to 3 hours and does not want to wait for another 2hours have the paperwork be completed. He stated that it should have taken this long because all I did did as the physician was look at some pictures. Left without his discharge paperwork 08/02/20 21:44 Counseled pt/family regarding: diagnosis, need for follow-up, rad results - Departure Departure Disposition: Home Clinical Impression: Fall with no injury, Right wrist sprain, Rib tenderness, Knee pain, bilateral Condition: Stable Critical Care Time: No Referrals: DOCTOR,NO FAMILY [Primary Care Provider] -
[2020-08-02 19:35] VITALS: BP 134/78; PULSE 71; O2SAT 100
--- NOTE | 2020-08-03 09:04 | XRAY ---
Indication: Pain following fall 2 days ago. Comparison: None 2 view left ribs obtained. No bony, articular, or soft tissue abnormalities.
--- NOTE | 2020-08-03 09:04 | XRAY ---
Indication: Pain following fall 2 days ago. Comparison: None 3 view left knee demonstrates minimal medial joint space narrowing and a small posterior fabella. No other bony, articular, or soft tissue abnormalities.
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
--- NOTE | 2020-08-03 09:06 | XRAY ---
Indication: Pain following fall 2 days ago. Comparison: None 3 view right wrist demonstrates old 5th metacarpal fracture deformity with tiny heterotopic ossifications near the base. No other bony, articular, or soft tissue abnormalities.
== END 2020-08-02 21:34 | disposition home or self-care (01) ==
LOC: ED 18:43
DX: S63.501A Unspecified sprain of right wrist, initial encounter (principal); W01.0XXA Fall on same level from slipping, tripping and stumbling without subsequent striking against object, initial encounter; R07.89 Other chest pain; M25.562 Pain in left knee; M25.561 Pain in right knee
CPT/HCPCS: 71100; 73110; 73562; 99283

== ENCOUNTER 2021-09-28 21:30 | Emergency (ER) | payer SELFPAY ==
[2021-09-28 21:44] VITALS: O2SAT 98
[2021-09-28] MEDS ORDERED: BENADRYL 25 MG CAPSULE ONE (21:45)
[2021-09-28] MEDS ORDERED: BENADRYL 25 MG CAPSULE PO ONE (21:45)
--- NOTE | 2021-09-28 21:51 | ERPHSYRPT ---
- History of Present Illness Source: patient Exam Limitations: no limitations Patient Subjective Stated Complaint: pt states "I got bit by a yellow jacket. My hand began to swell and go numb." Triage Nursing Assessment: pt ambulated into the er; pt is axo x4; c/o insect bi te; pt denies pain; redness present to dorsal side of rt hand; swelling present to dorsal side of rt hand; strong rt radial pulse; good cap refill to rt hand; vitals wnl Physician History: 36 yo wm w wasp sting on ulnar side of R index 1 hour before arrival. Pt has mild edema but denies fever/dyspnea/dysphagia. He took no Benadryl. Timing/Duration: other (1 hour) Severity: mild Modifying Factors: Improves With: nothing Associated Symptoms: denies symptoms Allergies/Adverse Reactions: No Known Drug Allergies Allergy (Verified 09/28/21 21:36) Home Medications: No Reportable Medications [No Reported Medications] 08/02/20 [History] Hx Tetanus, Diphtheria Vaccination/Date Given: Yes Hx Influenza Vaccination/Date Given: No Hx Pneumococcal Vaccination/Date Given: No Travel Risk - International Travel Have you traveled outside of the country in past 3 weeks: No - Coronavirus Screening Are you exhibiting any of the following symptoms?: No Close contact with a COVID-19 positive Pt in past 14-21 Days: No - Vaccine Status Have you recieved a Covid-19 vaccination: No - Review of Systems Constitutional: No Symptoms Eyes: No Symptoms Ears, Nose, & Throat: No Symptoms Respiratory: No Symptoms Cardiac: No Symptoms Abdominal/Gastrointestinal: No Symptoms Genitourinary Symptoms: No Symptoms Musculoskeletal: No Symptoms Neurological: No Symptoms Psychological: No Symptoms Endocrine: No Symptoms Hematologic/Lymphatic: No Symptoms Immunological/Allergic: No Symptoms - Past Medical History Pertinent Past Medical History: No Neurological History: No Pertinent History ENT History: No Pertinent History Cardiac History: No Pertinent History Respiratory History: No Pertinent History Endocrine Medical History: No Pertinent History Musculoskeletal History: Other GI Medical History: No Pertinent History History: No Pertinent History Psycho-Social History: No Pertinent History Male Reproductive Disorders: No Pertinent History Other Medical History: chronic left shoulder pain, pinched nerves - Past Surgical History Past Surgical History: No Neuro Surgical History: No Pertinent History Cardiac: No Pertinent History Respiratory: No Pertinent History Gastrointestinal: Cholecystectomy Genitourinary: No Pertinent History Musculoskeletal: No Pertinent History Male Surgical History: No Pertinent History - Social History Smoking Status: Current every day smoker How long have you smoked: years Exposure to second hand smoke: Yes Alcohol Use: Socially Drug Use: none Patient Lives Alone: No Significant Family History: no pertinent family hx - Nursing Vital Signs Nursing Vital Signs: Initial Vital Signs Temperature 98.4 F 09/28/21 21:37 Pulse Rate 86 09/28/21 21:37 Respiratory Rate 14 09/28/21 21:37 Blood Pressure 129/92 09/28/21 21:37 O2 Sat by Pulse Oximetry 98 09/28/21 21:37 Pain Scale Pain Intensity 0 WNL - Physical Exam General Appearance: no apparent distress Eye Exam: PERRL/EOMI, eyes nml inspection Ears, Nose, Throat Exam: normal ENT inspection, TMs normal, pharynx normal, moist mucous membranes Neck Exam: normal inspection, non-tender, supple, full range of motion, No meningismus, No mass, No Brudzinski, No Kernig's, No carotid bruit Respiratory Exam: normal breath sounds, lungs clear, airway intact, No respira tory distress Cardiovascular Exam: regular rate/rhythm, normal heart sounds, normal peripheral pulses, capillary refill <2 sec, No murmur Gastrointestinal/Abdomen Exam: soft, normal bowel sounds, No tenderness Back Exam: normal inspection, normal range of motion, No CVA tenderness, No vertebral tenderness Extremity Exam: other (Very small area of edema w very mild erythema ulnar side of R 2nd digit/Good distal capillary return and sensation) Neurologic Exam: alert, oriented x 3, cooperative, food handler II-XII nml as tested, normal mood/affect, nml cerebellar function, nml station & gait, sensation nml, No motor deficits, No sensory deficit Skin Exam: normal color, warm, dry Lymphatic Exam: No adenopathy SpO2 Interpretation: normal SpO2: 98 O2 Delivery: Room Air - Course Nursing assessment & vital signs reviewed: Yes Ordered Tests: Medication Summary Discontinued Medications Generic Name Dose Route Start Last Admin Trade Name Freq PRN Reason Stop Dose Admin Diphenhydramine HCl 25 mg 09/28/21 21:45 09/28/21 21:46 Diphenhydramine Hcl 25 Mg Capsule PO 09/28/21 21:46 25 mg STAT ONE Administration Diphenhydramine HCl Confirm 09/28/21 21:45 Diphenhydramine Hcl 25 Mg Capsule Administered 09/28/21 21:46 Dose 25 mg .ROUTE .STK-MED ONE - Progress Progress Note: 09/28/21 21:50 25mg po Benadryl Counseled pt/family regarding: diagnosis, need for follow-up - Departure Departure Disposition: Home Clinical Impression: Wasp sting Condition: Stable Critical Care Time: No Referrals: DOCTOR,NO FAMILY [Primary Care Provider] - Follow up/PCP as directed Instructions: Insect Bites and Stings (DC) Additional Instructions: Benadryl 25mg every 6 hours as needed Return to ER for increased swelling/pain/redness/temperature grearter than 100.5
[2021-09-28 21:57] VITALS: BP 125/85; PULSE 80
== END 2021-09-28 21:57 | disposition home or self-care (01) ==
LOC: ED 21:30
DX: T63.461A Toxic effect of venom of wasps, accidental (unintentional), initial encounter (principal); R60.0 Localized edema; Z72.0 Tobacco use; Z28.310 Unvaccinated for COVID-19
CPT/HCPCS: 99281; A9270-GY